=== PATIENT | female | born 1950 | race Caucasian/White ===

== ENCOUNTER 2017-05-06 12:09 | Emergency (ER) | payer MEDICARE, BC ==
[2017-05-06] MEDS ORDERED: Aspirin 81 MG Tab.EC PO ONE (12:34)
[2017-05-06] MEDS ORDERED: Sodium Chloride 0.9% 1,000 ML IV SCH ×2 (13:00→15:15)
--- NOTE | 2017-05-06 13:23 | CR ---
Low lung volumes. Mild cardiomegaly similar. Pulmonary vasculature within normal limits. No focal con solidation.
--- NOTE | 2017-05-06 14:01 | EDM.PDOC ---
ED HPI GENERAL MEDICAL PROBLEM - General Chief Complaint: Cardiovascular Problem Stated Complaint: dizzy faint Time Seen by Provider: 05/06/17 13:10 Source of Information: Reports: Patient, Family History Limitations: Reports: No Limitations - History of Present Illness INITIAL COMMENTS - FREE TEXT/NARRATIVE: pt arrived that she was feeling like she was going to pass out. Everytime she stood up she had the sensation that she was going to black out. Onset: Today Duration: Hour(s): Location: Reports: Chest. Denies: Other ( She noted that herpulse was slower than usual. The lowest that she got was 50. She did have slight tightness over the chest. ) Associated Symptoms: Reports: Shortness of Breath - Related Data Allergies Allergy/AdvReac Type Severity Reaction Status Date / Time aspirin Allergy Hallucinati Verified 05/06/17 12:33 ons Latex, Natural Rubber Allergy Itching Verified 05/06/17 12:38 Home Meds: Home Meds Potassium Chloride 20 meq PO DAILY 08/02/14 [History] Aspirin [Children's Aspirin] 81 mg PO DAILY 01/28/15 [History] Fish Oil/[place]-3 Fatty Acids [Fish Oil] 1,000 mg PO DAILY 01/28/15 [History] Hydrochlorothiazide/Lisinopril [Lisinopril-HCTZ 20-25 MG] 1 tab PO DAILY [History] Flaxseed Oil 1 tab PO DAILY 05/06/17 [History] Past Medical History HEENT History: Reports: Impaired Vision Cardiovascular History: Reports: Hypertension 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 She felt sob. ) Endocrine: Reports: No Symptoms GI/Abdominal: Reports: No Symptoms : Reports: No Symptoms Musculoskeletal: Reports: No Symptoms Skin: Reports: No Symptoms Neurological: Reports: Other ( Pt feels like she is going to pass out. ) ED EXAM, GENERAL - Physical Exam Exam: See Below Free Text/Narrative:: pt arrived with tightness in her chest and feeling sob. She had the sensation that she was going to pass out. Exam Limited By: Other (pt was sob when she tried to ambulate.) Ears: Normal TMs Throat/Mouth: Normal Inspection Head: Atraumatic Neck: Normal Inspection Respiratory/Chest: No Respiratory Distress Cardiovascular: Regular Rate, Rhythm GI/Abdominal: Soft, Non-Tender (Female) Exam: Deferred Rectal (Female) Exam: Deferred Back Exam: Normal Inspection Extremities: Normal Inspection Neurological: Alert, Oriented, Normal Cognition Course - Vital Signs Last Recorded V/S: Last Vital Signs Temp 37.5 C 05/06/17 15:45 Pulse 49 L 05/06/17 15:45 Resp 16 05/06/17 15:45 BP 115/55 L 05/06/17 15:45 Pulse Ox 94 L 05/06/17 15:45 - Orders/Labs/Meds Orders: Active Orders 24 hr Category Date Time Status EKG Documentation Completion [RC] ASDIRECTED Care 05/06/17 13:36 Active CULTURE URINE [RM] Stat Lab 05/06/17 15:30 Received TROPONIN I [CHEM] Urgent Lab 05/06/17 15:07 Ordered Sodium Chloride 0.9% [Normal Saline] 1,000 ml Med 05/06/17 13:00 Active IV ASDIRECTED Sodium Chloride 0.9% [Normal Saline] 1,000 ml Med 05/06/17 15:15 Active IV ASDIRECTED EKG 12 Lead [EK] Routine Ther 05/06/17 13:36 Ordered Medication Orders Sodium Chloride (Normal Saline) 1,000 mls @ 500 mls/hr IV ASDIRECTED SOLANGE Last Admin: 05/06/17 13:07 Dose: 500 mls/hr Sodium Chloride (Normal Saline) 1,000 mls @ 100 mls/hr IV ASDIRECTED SOLANGE Last Admin: 05/06/17 15:03 Dose: 100 mls/hr Labs: Laboratory Tests 05/06/17 05/06/17 05/06/17 Range/Units 12:30 12:30 12:30 WBC 8.9 (4.5-11.0) K/uL RBC 3.81 (3.30-5.50) M/uL Hgb 12.0 (12.0-15.0) g/dL Hct 35.6 L (36.0-48.0) % MCV 93 (80-98) fL MCH 32 H (27-31) pg MCHC 34 (32-36) % Plt Count 316 (150-400) K/uL Neut % (Auto) 57 (36-66) % Lymph % (Auto) 27 (24-44) % [place] % (Auto) 11 H (2-6) % Eos % (Auto) 3 (2-4) % Baso % (Auto) 2 H (0-1) % D-Dimer, Quantitative (0.0-400.0) ng/mL Sodium 137 L (140-148) mmol/L Potassium 4.8 (3.6-5.2) mmol/L Chloride 104 (100-108) mmol/L Carbon Dioxide 21 (21-32) mmol/L Anion Gap 16.8 H (5.0-14.0) mmol/L BUN 29 H (7-18) mg/dL Creatinine 1.6 H (0.6-1.0) mg/dL Est Cr Clr Drug Dosing TNP Estimated GFR (MDRD) 32 L (>60) Glucose 151 H (74-106) mg/dL Calcium 9.2 (8.5-10.1) mg/dL Total Bilirubin 0.4 (0.2-1.0) mg/dL AST 31 (15-37) U/L ALT 38 (12-78) U/L Alkaline Phosphatase 50 (46-116) U/L Creatine Kinase 144 (26-192) U/L Troponin I < 0.017 (0.000-0.056) ng/mL C-Reactive Protein (0.0-0.3) mg/dL NT-Pro-B Natriuret Pep (5-125) pg/mL Total Protein 8.3 H (6.4-8.2) g/dL Albumin 3.4 (3.4-5.0) g/dL Globulin 4.9 H (2.3-3.5) g/dL Albumin/Globulin Ratio 0.7 L (1.2-2.2) Urine Color Urine Appearance Urine pH (4.5-8.0) Ur Specific [place] (1.008-1.030) Urine Protein (NEGATIVE) mg/dL Urine Glucose (UA) (NEGATIVE) mg/dL Urine Ketones (NEGATIVE) mg/dL Urine Occult Blood (NEGATIVE) Urine Nitrite (NEGATIVE) Urine Bilirubin (NEGATIVE) Urine Urobilinogen (NORMAL) mg/dL Ur Leukocyte Esterase (NEGATIVE) Urine RBC (0-5) Urine WBC (0-5) Ur Epithelial Cells Amorphous Sediment Urine Bacteria Urine Mucus Urine Other 05/06/17 05/06/17 05/06/17 Range/Units 12:30 13:19 13:24 WBC (4.5-11.0) K/uL RBC (3.30-5.50) M/uL Hgb (12.0-15.0) g/dL Hct (36.0-48.0) % MCV (80-98) fL MCH (27-31) pg MCHC (32-36) % Plt Count (150-400) K/uL Neut % (Auto) (36-66) % Lymph % (Auto) (24-44) % [place] % (Auto) (2-6) % Eos % (Auto) (2-4) % Baso % (Auto) (0-1) % D-Dimer, Quantitative 1380 H (0.0-400.0) ng/mL Sodium (140-148) mmol/L Potassium (3.6-5.2) mmol/L Chloride (100-108) mmol/L Carbon Dioxide (21-32) mmol/L Anion Gap (5.0-14.0) mmol/L BUN (7-18) mg/dL Creatinine (0.6-1.0) mg/dL Est Cr Clr Drug Dosing Estimated GFR (MDRD) (>60) Glucose (74-106) mg/dL Calcium (8.5-10.1) mg/dL Total Bilirubin (0.2-1.0) mg/dL AST (15-37) U/L ALT (12-78) U/L Alkaline Phosphatase (46-116) U/L Creatine Kinase (26-192) U/L Troponin I (0.000-0.056) ng/mL C-Reactive Protein 3.81 H (0.0-0.3) mg/dL NT-Pro-B Natriuret Pep 380 H (5-125) pg/mL Total Protein (6.4-8.2) g/dL Albumin (3.4-5.0) g/dL Globulin (2.3-3.5) g/dL Albumin/Globulin Ratio (1.2-2.2) Urine Color Urine Appearance Urine pH (4.5-8.0) Ur Specific [place] (1.008-1.030) Urine Protein (NEGATIVE) mg/dL Urine Glucose (UA) (NEGATIVE) mg/dL Urine Ketones (NEGATIVE) mg/dL Urine Occult Blood (NEGATIVE) Urine Nitrite (NEGATIVE) Urine Bilirubin (NEGATIVE) Urine Urobilinogen (NORMAL) mg/dL Ur Leukocyte Esterase (NEGATIVE) Urine RBC (0-5) Urine WBC (0-5) Ur Epithelial Cells Amorphous Sediment Urine Bacteria Urine Mucus Urine Other 05/06/17 Range/Units 14:26 WBC (4.5-11.0) K/uL RBC (3.30-5.50) M/uL Hgb (12.0-15.0) g/dL Hct (36.0-48.0) % MCV (80-98) fL MCH (27-31) pg MCHC (32-36) % Plt Count (150-400) K/uL Neut % (Auto) (36-66) % Lymph % (Auto) (24-44) % [place] % (Auto) (2-6) % Eos % (Auto) (2-4) % Baso % (Auto) (0-1) % D-Dimer, Quantitative (0.0-400.0) ng/mL Sodium (140-148) mmol/L Potassium (3.6-5.2) mmol/L Chloride (100-108) mmol/L Carbon Dioxide (21-32) mmol/L Anion Gap (5.0-14.0) mmol/L BUN (7-18) mg/dL Creatinine (0.6-1.0) mg/dL Est Cr Clr Drug Dosing Estimated GFR (MDRD) (>60) Glucose (74-106) mg/dL Calcium (8.5-10.1) mg/dL Total Bilirubin (0.2-1.0) mg/dL AST (15-37) U/L ALT (12-78) U/L Alkaline Phosphatase (46-116) U/L Creatine Kinase (26-192) U/L Troponin I (0.000-0.056) ng/mL C-Reactive Protein (0.0-0.3) mg/dL NT-Pro-B Natriuret Pep (5-125) pg/mL Total Protein (6.4-8.2) g/dL Albumin (3.4-5.0) g/dL Globulin (2.3-3.5) g/dL Albumin/Globulin Ratio (1.2-2.2) Urine Color Yellow Urine Appearance Cloudy Urine pH 5.0 (4.5-8.0) Ur Specific [place] 1.010 (1.008-1.030) Urine Protein Negative (NEGATIVE) mg/dL Urine Glucose (UA) Normal (NEGATIVE) mg/dL Urine Ketones Negative (NEGATIVE) mg/dL Urine Occult Blood Negative (NEGATIVE) Urine Nitrite Negative (NEGATIVE) Urine Bilirubin Negative (NEGATIVE) Urine Urobilinogen Normal (NORMAL) mg/dL Ur Leukocyte Esterase Large (NEGATIVE) Urine RBC 0-5 (0-5) Urine WBC 10-20 H (0-5) Ur Epithelial Cells Moderate Amorphous Sediment Few Urine Bacteria Moderate Urine Mucus Moderate Urine Other See note Meds: Medications Generic Name Dose Route Start Last Admin Trade Name Freq PRN Reason Stop Dose Admin Sodium Chloride 1,000 mls @ 500 mls/hr 05/06/17 13:00 05/06/17 13:07 Normal Saline IV 500 mls/hr ASDIRECTED SOLANGE Administration Sodium Chloride 1,000 mls @ 100 mls/hr 05/06/17 15:15 05/06/17 15:03 Normal Saline IV 100 mls/hr ASDIRECTED SOLANGE Administration Discontinued Medications Generic Name Dose Route Start Last Admin Trade Name Freq PRN Reason Stop Dose Admin Aspirin 162 mg 05/06/17 12:34 05/06/17 13:02 Halfprin PO 05/06/17 12:35 162 mg ONETIME ONE Administration - Re-Assessments/Exams Free Text/Narrative Re-Assessment/Exam: 05/06/17 15:49 pt was found to have a 3rd degree block. She has a 1/2 hour period of some chest pressure this am. She has no chest pressure at this time. Her chest xray shows cardiomegoly but no other acute changes. She has what appears to be a 3rd degree block. Her cardiac enzymes are normal. Her crp is elevated at greater than 3. 05/06/17 15:52 Departure - Departure Time of Disposition: 15:53 Disposition: DC/Tfer to Acute Hospital 02 Reason for Transfer *Q: Primary PCI Indicated Condition: Fair Clinical Impression: Third degree heart block, Syncopal episodes Referrals: Jerome Acosta MD [Primary Care Provider] - Forms: ED Department Discharge Care Plan Goals: transfer to [facility]. - My Orders Last 24 Hours: My Active Orders 05/06/17 13:00 Sodium Chloride 0.9% [Normal Saline] 1,000 ml IV ASDIRECTED 05/06/17 13:36 EKG Documentation Completion [RC] ASDIRECTED EKG 12 Lead [EK] Routine 05/06/17 15:30 CULTURE URINE [RM] Stat - Assessment/Plan Last 24 Hours: My Active Orders 05/06/17 13:00 Sodium Chloride 0.9% [Normal Saline] 1,000 ml IV ASDIRECTED 05/06/17 13:36 EKG Documentation Completion [RC] ASDIRECTED EKG 12 Lead [EK] Routine 05/06/17 15:30 CULTURE URINE [RM] Stat
--- NOTE | 2017-05-06 15:44 | PCM.CONS ---
H&P History of Present Illness - General Date of Service: 05/06/17 Source of Information: Patient, Family, Provider History Limitations: Reports: No Limitations - History of Present Illness Initial Comments - Free Text/Narative: Elyse presents today after an episode that started around 10 AM. She was working in the kitchen when she suddenly became very dizzy and diaphoretic. She developed mild to moderate substernal chest pressure shortly after onset of dizziness and diaphoresis. She was very light-headed and unable to stand and lay down. She checked her pulse while she was laying down and determined that it was in the low 50s. After approximately one half hour of laying still her symptoms improved. Her chest pressure resolved. Her dizziness had initially resolved. When she tried to stand back up she became very dizzy and diaphoretic again so she came to the hospital for evaluation. She has had similar episodes though not this intense. Her most recent episode was 2 weeks ago and the first one she recalls was back in September of this year. They seem to becoming more frequent and more intense. She has not had any fevers or chills recently. No arthralgias or myalgias that are out of the ordinary. She feels like she's moving slower than she has in the past but hasn't noticed significant dyspnea with exertion. Workup in the emergency room revealed normal white blood cell count, normal electrolytes and a creatinine of 1.6. Her d-dimer was mildly elevated. Her troponin level on arrival was undetectable. Initial EKG suggested possible very mild inferior ST elevation as well as some lateral T waves that appeared to be acute. Repeat EKG while later did not show any changes from the initial EKG. She has been stable during the hospital stay but is extremely symptomatic when she tries to sit up or stand up. There is no evidence for congestive heart failure. My limited bedside ultrasound showed what appeared to be normal left ventricular function. No evidence for pericardial effusion. She did have a mild mitral regurgitation. - Related Data Allergies/Adverse Reactions: Allergies Allergy/AdvReac Type Severity Reaction Status Date / Time aspirin Allergy Hallucinati Verified 05/06/17 12:33 ons Latex, Natural Rubber Allergy Itching Verified 05/06/17 12:38 Home Medications: Home Meds Potassium Chloride 20 meq PO DAILY 08/02/14 [History] Aspirin [Children's Aspirin] 81 mg PO DAILY 01/28/15 [History] Fish Oil/[place]-3 Fatty Acids [Fish Oil] 1,000 mg PO DAILY 01/28/15 [History] Hydrochlorothiazide/Lisinopril [Lisinopril-HCTZ 20-25 MG] 1 tab PO DAILY [History] Flaxseed Oil 1 tab PO DAILY 05/06/17 [History] Past Medical History HEENT History: Reports: Impaired Vision Cardiovascular History: Reports: Hypertension 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: Musculoskeletal History: Reports: Osteoarthritis - Past Surgical History GI Surgical History: Reports: Cholecystectomy, Colonoscopy Social & Family History - Family History Cardiac: Reports: CAD (7/8 brothers and her father at age 68 because of a myocardial infarction) - Tobacco Use Smoking Status *Q: Never Smoker Second Hand Smoke Exposure: No - Caffeine Use Caffeine Use: Reports: None - Alcohol Use Alcohol Use History: No - Recreational Drug Use Recreational Drug Use: No H&P Review of Systems - Review of Systems: Review Of Systems: See Below Free Text/Narrative: A complete 12 point review of systems was obtained. Pertinent positives and negatives are noted in the history of present illness. All other systems were reviewed and were negative except as noted. Exam - Exam Exam: See Below - Vital Signs Vital Signs: Last Vital Signs Temp Pulse 50 L 05/06/17 14:22 Resp 16 05/06/17 14:13 BP 114/45 L 05/06/17 14:22 Pulse Ox 96 05/06/17 14:22 Weight: 104.326 kg - Exam Quality Assessment: No: Supplemental Oxygen General: Alert, Oriented, Cooperative. No: Mild Distress HEENT: Conjunctiva Clear, Mucosa Moist & [place]. No: Scleral Icterus Neck: Supple, Trachea Midline. No: Lymphadenopathy Lungs: Clear to Auscultation, Normal Respiratory Effort Cardiovascular: Regular Rhythm, Bradycardia. No: Regular Rate, Systolic Murmur GI/Abdominal Exam: Normal Bowel Sounds, Soft, Non-Tender, No Distention Back Exam: Normal Inspection, Full Range of Motion Extremities: Normal Inspection, No Pedal Edema. No: Increased Warmth Peripheral Pulses: 2+: Dorsalis Pedis (L), Dorsalis Pedis (R) Skin: Warm, Dry Neuro Extensive - Mental Status: Alert, Oriented x3, Nl Response to Commands Neuro Extensive - Motor, Sensory, Reflexes: CN II-XII Intact. No: Dysarthria, Abnormal Motor, Tremor Psychiatric: Alert, Normal Affect - Patient Data Lab Results Last 24 hrs: Laboratory Results - last 24 hr 05/06/17 05/06/17 05/06/17 Range/Units 12:30 12:30 12:30 WBC 8.9 (4.5-11.0) K/uL RBC 3.81 (3.30-5.50) M/uL Hgb 12.0 (12.0-15.0) g/dL Hct 35.6 L (36.0-48.0) % MCV 93 (80-98) fL MCH 32 H (27-31) pg MCHC 34 (32-36) % Plt Count 316 (150-400) K/uL Neut % (Auto) 57 (36-66) % Lymph % (Auto) 27 (24-44) % [place] % (Auto) 11 H (2-6) % Eos % (Auto) 3 (2-4) % Baso % (Auto) 2 H (0-1) % D-Dimer, Quantitative (0.0-400.0) ng/mL Sodium 137 L (140-148) mmol/L Potassium 4.8 (3.6-5.2) mmol/L Chloride 104 (100-108) mmol/L Carbon Dioxide 21 (21-32) mmol/L Anion Gap 16.8 H (5.0-14.0) mmol/L BUN 29 H (7-18) mg/dL Creatinine 1.6 H (0.6-1.0) mg/dL Est Cr Clr Drug Dosing TNP Estimated GFR (MDRD) 32 L (>60) Glucose 151 H (74-106) mg/dL Calcium 9.2 (8.5-10.1) mg/dL Total Bilirubin 0.4 (0.2-1.0) mg/dL AST 31 (15-37) U/L ALT 38 (12-78) U/L Alkaline Phosphatase 50 (46-116) U/L Creatine Kinase 144 (26-192) U/L Troponin I < 0.017 (0.000-0.056) ng/mL C-Reactive Protein (0.0-0.3) mg/dL NT-Pro-B Natriuret Pep (5-125) pg/mL Total Protein 8.3 H (6.4-8.2) g/dL Albumin 3.4 (3.4-5.0) g/dL Globulin 4.9 H (2.3-3.5) g/dL Albumin/Globulin Ratio 0.7 L (1.2-2.2) Urine Color Urine Appearance Urine pH (4.5-8.0) Ur Specific [place] (1.008-1.030) Urine Protein (NEGATIVE) mg/dL Urine Glucose (UA) (NEGATIVE) mg/dL Urine Ketones (NEGATIVE) mg/dL Urine Occult Blood (NEGATIVE) Urine Nitrite (NEGATIVE) Urine Bilirubin (NEGATIVE) Urine Urobilinogen (NORMAL) mg/dL Ur Leukocyte Esterase (NEGATIVE) Urine RBC (0-5) Urine WBC (0-5) Ur Epithelial Cells Amorphous Sediment Urine Bacteria Urine Mucus Urine Other 05/06/17 05/06/17 05/06/17 Range/Units 12:30 13:19 13:24 WBC (4.5-11.0) K/uL RBC (3.30-5.50) M/uL Hgb (12.0-15.0) g/dL Hct (36.0-48.0) % MCV (80-98) fL MCH (27-31) pg MCHC (32-36) % Plt Count (150-400) K/uL Neut % (Auto) (36-66) % Lymph % (Auto) (24-44) % [place] % (Auto) (2-6) % Eos % (Auto) (2-4) % Baso % (Auto) (0-1) % D-Dimer, Quantitative 1380 H (0.0-400.0) ng/mL Sodium (140-148) mmol/L Potassium (3.6-5.2) mmol/L Chloride (100-108) mmol/L Carbon Dioxide (21-32) mmol/L Anion Gap (5.0-14.0) mmol/L BUN (7-18) mg/dL Creatinine (0.6-1.0) mg/dL Est Cr Clr Drug Dosing Estimated GFR (MDRD) (>60) Glucose (74-106) mg/dL Calcium (8.5-10.1) mg/dL Total Bilirubin (0.2-1.0) mg/dL AST (15-37) U/L ALT (12-78) U/L Alkaline Phosphatase (46-116) U/L Creatine Kinase (26-192) U/L Troponin I (0.000-0.056) ng/mL C-Reactive Protein 3.81 H (0.0-0.3) mg/dL NT-Pro-B Natriuret Pep 380 H (5-125) pg/mL Total Protein (6.4-8.2) g/dL Albumin (3.4-5.0) g/dL Globulin (2.3-3.5) g/dL Albumin/Globulin Ratio (1.2-2.2) Urine Color Urine Appearance Urine pH (4.5-8.0) Ur Specific [place] (1.008-1.030) Urine Protein (NEGATIVE) mg/dL Urine Glucose (UA) (NEGATIVE) mg/dL Urine Ketones (NEGATIVE) mg/dL Urine Occult Blood (NEGATIVE) Urine Nitrite (NEGATIVE) Urine Bilirubin (NEGATIVE) Urine Urobilinogen (NORMAL) mg/dL Ur Leukocyte Esterase (NEGATIVE) Urine RBC (0-5) Urine WBC (0-5) Ur Epithelial Cells Amorphous Sediment Urine Bacteria Urine Mucus Urine Other 05/06/17 Range/Units 14:26 WBC (4.5-11.0) K/uL RBC (3.30-5.50) M/uL Hgb (12.0-15.0) g/dL Hct (36.0-48.0) % MCV (80-98) fL MCH (27-31) pg MCHC (32-36) % Plt Count (150-400) K/uL Neut % (Auto) (36-66) % Lymph % (Auto) (24-44) % [place] % (Auto) (2-6) % Eos % (Auto) (2-4) % Baso % (Auto) (0-1) % D-Dimer, Quantitative (0.0-400.0) ng/mL Sodium (140-148) mmol/L Potassium (3.6-5.2) mmol/L Chloride (100-108) mmol/L Carbon Dioxide (21-32) mmol/L Anion Gap (5.0-14.0) mmol/L BUN (7-18) mg/dL Creatinine (0.6-1.0) mg/dL Est Cr Clr Drug Dosing Estimated GFR (MDRD) (>60) Glucose (74-106) mg/dL Calcium (8.5-10.1) mg/dL Total Bilirubin (0.2-1.0) mg/dL AST (15-37) U/L ALT (12-78) U/L Alkaline Phosphatase (46-116) U/L Creatine Kinase (26-192) U/L Troponin I (0.000-0.056) ng/mL C-Reactive Protein (0.0-0.3) mg/dL NT-Pro-B Natriuret Pep (5-125) pg/mL Total Protein (6.4-8.2) g/dL Albumin (3.4-5.0) g/dL Globulin (2.3-3.5) g/dL Albumin/Globulin Ratio (1.2-2.2) Urine Color Yellow Urine Appearance Cloudy Urine pH 5.0 (4.5-8.0) Ur Specific [place] 1.010 (1.008-1.030) Urine Protein Negative (NEGATIVE) mg/dL Urine Glucose (UA) Normal (NEGATIVE) mg/dL Urine Ketones Negative (NEGATIVE) mg/dL Urine Occult Blood Negative (NEGATIVE) Urine Nitrite Negative (NEGATIVE) Urine Bilirubin Negative (NEGATIVE) Urine Urobilinogen Normal (NORMAL) mg/dL Ur Leukocyte Esterase Large (NEGATIVE) Urine RBC 0-5 (0-5) Urine WBC 10-20 H (0-5) Ur Epithelial Cells Moderate Amorphous Sediment Few Urine Bacteria Moderate Urine Mucus Moderate Urine Other See note EKG 1 - Wenkebach versus AB dissociation. Rate in the 50s. Possible very mild, less than [address] elevation in lead 3 and possibly mild and aVF. Lateral T waves. A larger than expected. Right bundle branch block and left anterior fascicular block EKG 2 - similar to EKG 1 Result Diagrams: 05/06/17 12:30 05/06/17 12:30 Imaging Impressions Last 24 hrs: Chest x-ray - images personally reviewed - there appears to be mild cardiomegaly. No definite evidence for congestive heart failure, effusion, mass or infiltrate. Consult PN Assessment/Plan Procedures: Procedures COLONOSCOPY AND BIOPSY (01/30/15) COMP SCREEN MAMMOGRAM ADD-ON (02/17/16) EMERGENCY DEPT VISIT (08/02/14) HOT OR COLD PACKS THERAPY (09/20/14) MANUAL THERAPY 1/> REGIONS (09/20/14) PT EVALUATION (08/21/14) THER/PROPH/DIAG INJ SC/IM (08/02/14) THERAPEUTIC EXERCISES (09/20/14) ULTRASOUND THERAPY (09/20/14) X-RAY EXAM OF SHOULDER (08/02/14) (1) Chest pain SNOMED Code(s): 34613949 Code(s): R07.9 - CHEST PAIN, UNSPECIFIED Current Visit: Yes Qualifiers: Chest pain type: precordial pain Qualified Code(s): R07.2 - Precordial pain (2) Pre-syncope SNOMED Code(s): 116958450 Code(s): R55 - SYNCOPE AND COLLAPSE Current Visit: Yes (3) Complete heart block SNOMED Code(s): 35302230 Code(s): I44.2 - ATRIOVENTRICULAR BLOCK, COMPLETE Current Visit: Yes Problem List Initiated/Reviewed/Updated: Yes My Orders Last 24 Hours: My Active Orders 05/06/17 15:07 TROPONIN I [CHEM] Urgent 05/06/17 15:15 Sodium Chloride 0.9% [Normal Saline] 1,000 ml IV ASDIRECTED Plan: ASSESSMENT AND PLAN - Orthostatic presyncope with chest pain - no definitive evidence for acute ischemia at the time of arrival but concerning story. There is some concern for unstable angina with progression of symptoms as well as progression of severity. EKG abnormal discussed below. My bedside echocardiogram did not show definitive wall motion abnormality though the inferior wall was not well visualized. Unclear at this time if this is an electrical issue leading to A-V dissociation or if there is occlusive coronary artery disease or both. Her case was discussed with Dr. Rosenthal at [facility] in [place] and he recommended transfer for further evaluation. She has been pain-free during the emergency room stay. She has received 324 mg of aspirin today. -repeat troponin pending -Continue IV fluids -Cardiac monitoring during transfer -Transfer to [place] for further cardiology evaluation Possible A-V dissociation versus prolonged MO with variable conduction - unclear if this is a primary electrical issue or due to ischemic disease. Further workup will be determined after cardiology evaluation. Patient will be transferred to [facility] in [place] for cardiology evaluation and further workup that could include cardiac catheterization or consideration for permanent pacemaker placement. She will be transferred via [facility] ambulance. Hernan Sage MD Requesting Provider: Dr Florence Date Consult Requested: 05/06/17 Reason for Consult: chest pain, possible heart block Patient History Reviewed: Yes Admission H&P Reviewed: No (n/a ) Notified Requestor: Yes Time Spent (in minutes): 60
[2017-05-06 15:46] VITALS: BP 115/55
== END 2017-05-06 16:05 ==
LOC: JP.ED 12:09
DX: I44.2 Atrioventricular block, complete (principal); H54.7 Unspecified visual loss; I10 Essential (primary) hypertension; M19.90 Unspecified osteoarthritis, unspecified site; Z90.49 Acquired absence of other specified parts of digestive tract; Z91.040 Latex allergy status; Z79.82 Long term (current) use of aspirin; Z79.899 Other long term (current) drug therapy; R06.02 Shortness of breath
CPT/HCPCS: 36415; 71010; 80053; 81001; 82550; 83880; 84484; 85025; 85379; 86140; 87086; 93005; 93010; 96360; 96361; 99285; A9270; J7040

== ENCOUNTER 2022-09-30 08:28 | Emergency (ER) | payer MEDICARE, BC ==
[2022-09-30 08:47] VITALS: BP 141/60; PULSE 122
== END 2022-09-30 11:27 | disposition home or self-care (01) ==
LOC: JP.ED 08:28
DX: M25.561 Pain in right knee (principal); M25.461 Effusion, right knee; I10 Essential (primary) hypertension; E66.9 Obesity, unspecified; Z68.41 Body mass index [BMI] 40.0-44.9, adult; Z88.6 Allergy status to analgesic agent; Z91.040 Latex allergy status; Z79.01 Long term (current) use of anticoagulants; Z90.49 Acquired absence of other specified parts of digestive tract
CPT/HCPCS: 73700-26-RT; 73700-RT; 99283